=== PATIENT | male | born 1990 | race Two or more races ===

== ENCOUNTER 2016-04-28 22:49 | Emergency (ER) | payer SELFPAY ==
[~2016-04-28] VITALS: Ht 170.2 cm; Wt 77.1 kg
[~2016-04-28 22:49] MED LIST: PHEN100C4 PO
[2016-04-29] MEDS ORDERED: IV SET PRIMARY 1 EA INFUS.SET MC ONE ×2 (00:11→01:05)
[2016-04-29] MEDS ORDERED: IV NS 0.9% 1,000 ML ONE ×2 (00:11→01:05)
[2016-04-29 00:26] LABS: BASOPHILS % (AUTO) 0.5 % (0.0-2.0); DIFF TOTAL % 100 %; EOSINOPHILS # (AUTO) 0.1 /CMM (0.0-0.7); EOSINOPHILS % (AUTO) 1.4 % (0.0-6.0); HEMATOCRIT 43 % (39-51); HEMOGLOBIN 14.2 g/dL (13.5-17.5); LYMPHOCYTES # (AUTO) 1.5 /CMM (0.8-4.8); LYMPHOCYTES % (AUTO) 14.5 % (20.0-44.0); MEAN CORPUSCULAR HEMOGLOBIN 29 PG (26.0-33.0); MEAN CORPUSCULAR HGB CONC 33 g/dl (31.0-36.0); MEAN CORPUSCULAR VOLUME 88 fL (80-96); MONOCYTES # (AUTO) 0.7 /CMM (0.1-1.30); MONOCYTES % (AUTO) 6.7 % (2.0-12.0); NEUTROPHILS # (AUTO) 7.8 /CMM (1.8-8.9); NEUTROPHILS % (AUTO) 76.9 % (43.0-81.0); PLATELET COUNT (AUTO) 243 /CMM (150-450); RED BLOOD CELL COUNT(AUTO) 4.89 MIL/uL (4.5-6.0); WHITE BLOOD COUNT (AUTO) 10.1 K/uL (4.3-11.0)
[2016-04-29] MEDS ORDERED: IV NS 0.9% 1,000 ML BAG IV ONE ×2 (00:30→01:30)
[2016-04-29 00:35] LABS: CALCIUM, SERUM 8.8 mg/dL (8.5-10.1); POTASSIUM 3.4 mmol/L (3.5-5.1)
[2016-04-29 00:59] LABS: CREATINE KINASE MB 0.9 ng/mL (0-3.6)
[2016-04-29] MEDS ORDERED: POTASSIUM CHLORIDE 20 MEQ TAB.PRT.SR PO ONE ×2 (01:05→01:30)
[2016-04-29 01:49] VITALS: BP 105/66
== END 2016-04-29 01:54 | disposition home or self-care (01) ==
LOC: ER 22:49
DX: M79.652 Pain in left thigh (principal); M62.82 Rhabdomyolysis; E86.0 Dehydration; E87.6 Hypokalemia; G40.909 Epilepsy, unspecified, not intractable, without status epilepticus; Q99.9 Chromosomal abnormality, unspecified
CPT/HCPCS: 36415; 80048; 82550; 82553; 85025; 96360; 96361; 99284; J7030 ×2

== ENCOUNTER 2016-08-05 20:20 | Emergency (ER) | payer SELFPAY ==
[~2016-08-05] VITALS: Ht 172.7 cm; Wt 70.3 kg
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
--- NOTE | 2016-08-05 20:50 | NUR ---
XR AT BEDSIDE.
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
--- NOTE | 2016-08-05 21:19 | NUR ---
[employer] AT BEDSIDE.
[2016-08-05] MEDS ORDERED: TDAP [DIPH/PERTUSSIS/TET] 0.5 ML VIAL IM ONE (21:25)
[2016-08-05] MEDS ORDERED: LIDOCAINE HCL/PF 1% 30 ML SDV ONE (21:38)
[2016-08-05] MEDS: TDAP [DIPH/PERTUSSIS/TET] 0.5 ML VIAL IM ONE (21:38)
--- NOTE | 2016-08-05 22:00 | NUR ---
Dr Vail at bedside for suture on the wound.
--- NOTE | 2016-08-05 22:40 | NUR ---
Patient discharged to home in stable condition. Written and verbal after care instructions given. Patient verbalizes understanding of instruction. Patient is ambulatory with steady gait. No further complaints.
[2016-08-05 22:57] VITALS: BP 148/78
== END 2016-08-05 22:58 | disposition home or self-care (01) ==
LOC: ER 20:22
DX: S61.401A Unspecified open wound of right hand, initial encounter (principal); G40.909 Epilepsy, unspecified, not intractable, without status epilepticus; Q99.9 Chromosomal abnormality, unspecified; Z23 Encounter for immunization; W34.09XA Accidental discharge from other specified firearms, initial encounter; Y93.89 Activity, other specified; Y92.89 Other specified places as the place of occurrence of the external cause; Y99.8 Other external cause status
CPT/HCPCS: 73090-TC; 73130-TC; 90715; A4606; J3490; Z7610

== ENCOUNTER 2016-08-13 21:14 | Emergency (ER) | payer MEDICAID ==
[~2016-08-13] VITALS: Ht 177.8 cm; Wt 75.3 kg
[2016-08-13 21:19] VITALS: BP 130/77
== END 2016-08-13 21:56 | disposition home or self-care (01) ==
LOC: ER 21:15
DX: S61.411D Laceration without foreign body of right hand, subsequent encounter (principal); G40.909 Epilepsy, unspecified, not intractable, without status epilepticus
CPT/HCPCS: A4606; Z7502; Z7610

== ENCOUNTER 2016-11-13 03:02 | Emergency (ER) | payer MEDICAID ==
[~2016-11-13] VITALS: Ht 160 cm; Wt 72.6 kg
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
--- NOTE | 2016-11-13 06:16 | NUR ---
DR. ALVES AT BEDSIDE FOR EVAL.
--- NOTE | 2016-11-13 06:26 | NUR ---
IV STARTED ON LEFT FA 20G, INTACT AND PATENT. GOOD BLOOD RETURN. LABS DRAWN AND SENT TO LAB
[2016-11-13 06:35] LABS: BASOPHILS % (AUTO) 0.5 % (0.0-2.0); EOSINOPHILS % (AUTO) 0.3 % (0.0-6.0); HEMATOCRIT 46 % (39-51); HEMOGLOBIN 15.2 g/dL (13.5-17.5); LYMPHOCYTES # (AUTO) 1.5 /CMM (0.8-4.8); LYMPHOCYTES % (AUTO) 15.8 % (20.0-44.0); MEAN CORPUSCULAR HEMOGLOBIN 29 PG (26.0-33.0); MEAN CORPUSCULAR HGB CONC 33 g/dl (31.0-36.0); MEAN CORPUSCULAR VOLUME 88 fL (80-96); MONOCYTES # (AUTO) 0.4 /CMM (0.1-1.30); MONOCYTES % (AUTO) 4.4 % (2.0-12.0); NEUTROPHILS # (AUTO) 7.3 /CMM (1.8-8.9); PLATELET COUNT (AUTO) 235 /CMM (150-450); RDW COEFFICIENT OF VARIATION 13.8 (11.5-15.0); RED BLOOD CELL COUNT(AUTO) 5.24 MIL/uL (4.5-6.0); WHITE BLOOD COUNT (AUTO) 9.3 K/uL (4.3-11.0)
[2016-11-13 06:48] LABS: CREATININE 0.8 mg/dL (0.6-1.3); POTASSIUM 3.8 mmol/L (3.5-5.1)
--- NOTE | 2016-11-13 06:50 | NUR ---
PT APPEARS COMFORTABLE AT THIS TIME. MOTHER AT BEDSIDE
[2016-11-13 06:51] LABS: PHENYTOIN (DILANTIN) 4.2 ug/ml (10.0-20.0)
[2016-11-13 06:53] LABS: ALBUMIN 3.8 g/dL (3.4-5.0); BILIRUBIN,TOTAL 0.2 mg/dL (0.2-1.0)
--- NOTE | 2016-11-13 07:03 | NUR ---
REPORT GIVEN TO POOJA BURLESON FOR GERTRUDIS.
--- NOTE | 2016-11-13 08:29 | NUR ---
Patient discharged to home in stable condition. Written and verbal after care instructions given. Patient verbalizes understanding of instruction. IV removed. Catheter intact and site benign. Pressure and 4x4 applied to site. No bleeding noted. nad noted. pt aao x4, amb with steady gait. vss. no further complaints. prescriptions given. leaving with mother via private car.
[2016-11-13 08:33] VITALS: BP 127/63
== END 2016-11-13 08:34 | disposition home or self-care (01) ==
LOC: ER 03:08
DX: G40.909 Epilepsy, unspecified, not intractable, without status epilepticus (principal); R32 Unspecified urinary incontinence; Z91.14 Patient's other noncompliance with medication regimen
CPT/HCPCS: 36415; 80048-TC; 80076-TC; 80185-TC; 85025-TC; A4606; J1165; J7030; Z7610

== ENCOUNTER 2017-10-02 16:49 | Emergency (ER) | payer MEDICAID ==
[~2017-10-02] VITALS: Ht 170.2 cm; Wt 74.4 kg
--- NOTE | 2017-10-02 17:22 | NUR ---
DR ALVES AT BEDSIDE FOR EVAL.
[2017-10-02] MEDS ORDERED: ONDANSETRON HCL/PF 4 MG/2 ML VIAL ONE (17:24)
[2017-10-02] MEDS ORDERED: ONDANSETRON HCL/PF 4 MG/2 ML VIAL IVP ONE (17:30)
[2017-10-02] MEDS ORDERED: IV NS 0.9% 1,000 ML BAG IV ONE (17:30)
--- NOTE | 2017-10-02 17:30 | NUR ---
IV LINE STARTED BLOOD DRAWN AND SENT TO LAB.
[2017-10-02 17:33] LABS: BASOPHILS % (AUTO) 0.3 % (0.0-2.0); EOSINOPHILS % (AUTO) 0.3 % (0.0-6.0); HEMATOCRIT 46 % (39-51); HEMOGLOBIN 15.1 g/dL (13.5-17.5); LYMPHOCYTES # (AUTO) 1.2 /CMM (0.8-4.8); LYMPHOCYTES % (AUTO) 16.9 % (20.0-44.0); MEAN CORPUSCULAR HEMOGLOBIN 29 PG (26.0-33.0); MEAN CORPUSCULAR HGB CONC 33 g/dl (31.0-36.0); MEAN CORPUSCULAR VOLUME 88 fL (80-96); MONOCYTES # (AUTO) 0.4 /CMM (0.1-1.30); NEUTROPHILS # (AUTO) 5.5 /CMM (1.8-8.9); NEUTROPHILS % (AUTO) 76.5 % (43.0-81.0); PLATELET COUNT (AUTO) 229 /CMM (150-450); RDW COEFFICIENT OF VARIATION 12.2 (11.5-15.0); RED BLOOD CELL COUNT(AUTO) 5.27 MIL/uL (4.5-6.0); WHITE BLOOD COUNT (AUTO) 7.1 K/uL (4.3-11.0)
[2017-10-02 17:42] LABS: CALCIUM, SERUM 9.1 mg/dL (8.5-10.1); CREATININE 1.1 mg/dL (0.6-1.3); POTASSIUM 3.6 mmol/L (3.5-5.1)
[2017-10-02 17:49] LABS: BILIRUBIN,DIRECT 0.1 mg/dL (0.0-0.2); BILIRUBIN,TOTAL 0.4 mg/dL (0.2-1.0); TOTAL PROTEIN, SERUM 7.9 g/dL (6.4-8.2)
--- NOTE | 2017-10-02 18:32 | NUR ---
Patient discharged to home in stable condition. Written and verbal after care instructions given. Patient verbalizes understanding of instruction.IV removed. Catheter intact and site benign. Pressure and 4x4 applied to site. No bleeding noted.
[2017-10-02 18:39] VITALS: BP 132/76
== END 2017-10-02 18:40 | disposition home or self-care (01) ==
LOC: ER 17:00
DX: R11.2 Nausea with vomiting, unspecified (principal); K59.03 Drug induced constipation; G40.909 Epilepsy, unspecified, not intractable, without status epilepticus; F10.10 Alcohol abuse, uncomplicated; Y90.9 Presence of alcohol in blood, level not specified
CPT/HCPCS: 36415; 80048-TC; 80076-TC; 83690-TC; 85025-TC; A4606; J2405; J7030; Z7610

== ENCOUNTER 2018-01-11 12:47 | Emergency (ER) | payer MEDICAID ==
[~2018-01-11] VITALS: Ht 170.2 cm; Wt 78.0 kg
--- NOTE | 2018-01-11 13:00 | NUR ---
PT BIB SELF C/O NAUSEA AND PRESSURE IN THE HEAD X 2 WEEKS, PT IS AOX4, NOT IN RESPIRATORY DISTRESS, V/S STABLE, KEPT RESTED AND COMFORTABLE, AWAITIN ER MD FOR EVAL.
[2018-01-11] MEDS ORDERED: ONDANSETRON HCL/PF 4 MG/2 ML VIAL IVP ONE (14:00)
[2018-01-11] MEDS ORDERED: IV NS 0.9% 1,000 ML BAG IV ONE (14:00)
[2018-01-11] MEDS ORDERED: ONDANSETRON HCL/PF 4 MG/2 ML VIAL ONE (14:07)
[2018-01-11 14:29] LABS: BASOPHILS % (AUTO) 0.4 % (0.0-2.0); EOSINOPHILS % (AUTO) 0.7 % (0.0-6.0); HEMATOCRIT 45 % (39-51); HEMOGLOBIN 15.1 g/dL (13.5-17.5); LYMPHOCYTES # (AUTO) 1.5 /CMM (0.8-4.8); LYMPHOCYTES % (AUTO) 21.2 % (20.0-44.0); MEAN CORPUSCULAR HGB CONC 33 g/dl (31.0-36.0); MEAN CORPUSCULAR VOLUME 89 fL (80-96); MONOCYTES # (AUTO) 0.4 /CMM (0.1-1.30); MONOCYTES % (AUTO) 5.2 % (2.0-12.0); NEUTROPHILS % (AUTO) 72.5 % (43.0-81.0); PLATELET COUNT (AUTO) 222 /CMM (150-450); RED BLOOD CELL COUNT(AUTO) 5.11 MIL/uL (4.5-6.0); WHITE BLOOD COUNT (AUTO) 6.9 K/uL (4.3-11.0)
--- NOTE | 2018-01-11 14:40 | NUR ---
URINE SPECIMEN COLLECTED.
[2018-01-11 14:49] LABS: CALCIUM, SERUM 9.5 mg/dL (8.5-10.1); POTASSIUM 4.2 mmol/L (3.5-5.1)
[2018-01-11 14:59] LABS: BILIRUBIN,DIRECT 0.1 mg/dL (0.0-0.2); BILIRUBIN,TOTAL 0.2 mg/dL (0.2-1.0); TOTAL PROTEIN, SERUM 8.5 g/dL (6.4-8.2)
[2018-01-11 15:08] LABS: APPEARANCE,URINE Clear (CLEAR); BILIRUBIN,URINE Negative (NEGATIVE); BLOOD, URINE Negative Ery/uL (NEGATIVE); COLOR,URINE Yellow (YELLOW); KETONES,URINE Negative (NEGATIVE); LEUKOCYTE ESTERASE ,URINE Negative (NEGATIVE); NITRITE, URINE Negative (NEGATIVE); PROTEIN,URINE Negative (NEGATIVE); UGLUCOSE Negative (NEGATIVE); UROBILINOGEN,URINE 0.2 EU/dL (0.2)
--- NOTE | 2018-01-11 15:11 | NUR ---
IV removed. Catheter intact and site benign. Pressure and 4x4 applied to site. No bleeding noted. Patient discharged to home in stable condition. Written and verbal after care instructions given. Patient verbalizes understanding of instruction.
[2018-01-11 15:15] VITALS: BP 134/70
== END 2018-01-11 15:16 | disposition home or self-care (01) ==
LOC: ER 12:50
DX: R42 Dizziness and giddiness (principal); R51 Headache; R11.0 Nausea; G40.909 Epilepsy, unspecified, not intractable, without status epilepticus; Q99.9 Chromosomal abnormality, unspecified; F10.10 Alcohol abuse, uncomplicated; Y90.9 Presence of alcohol in blood, level not specified
CPT/HCPCS: 36415; 80048-TC; 80076-TC; 81000-TC; 83690-TC; 85025-TC; A4606; J2405; J7030; Z7610

== ENCOUNTER 2019-02-05 14:21 | Emergency (ER) | payer MEDICAID ==
[~2019-02-05] VITALS: Ht 170.2 cm; Wt 79.4 kg
--- NOTE | 2019-02-05 14:35 | NUR ---
BIB MOM C/O NAUSEA/VOMITING AND DIARRHEA STARTED YESTERDAY. PATIENT A/OX4, BREATHING EVEN AND UNLABORED, NO SOB NOTED, NEEDS ATTENDED, KEPT COMFORTABLE.
[2019-02-05] MEDS ORDERED: ACETAMINOPHEN W/ CODEINE#3 1 EA TABLET ONE (14:49)
[2019-02-05] MEDS ORDERED: ONDANSETRON HCL/PF 4 MG/2 ML VIAL ONE (14:49)
[2019-02-05 14:53] LABS: BASOPHILS % (AUTO) 0.6 % (0.0-2.0); EOSINOPHILS % (AUTO) 0.3 % (0.0-6.0); HEMATOCRIT 48 % (39-51); HEMOGLOBIN 16.1 g/dL (13.5-17.5); LYMPHOCYTES # (AUTO) 0.9 /CMM (0.8-4.8); LYMPHOCYTES % (AUTO) 21.6 % (20.0-44.0); MEAN CORPUSCULAR HGB CONC 33 g/dl (31.0-36.0); MEAN CORPUSCULAR VOLUME 88 fL (80-96); MONOCYTES # (AUTO) 0.3 /CMM (0.1-1.30); NEUTROPHILS # (AUTO) 2.9 /CMM (1.8-8.9); NEUTROPHILS % (AUTO) 69.5 % (43.0-81.0); PLATELET COUNT (AUTO) 138 /CMM (150-450); RED BLOOD CELL COUNT(AUTO) 5.52 MIL/uL (4.5-6.0); WHITE BLOOD COUNT (AUTO) 4.2 K/uL (4.3-11.0)
[2019-02-05] MEDS ORDERED: ONDANSETRON HCL/PF - ER 4 MG/2 ML VIAL IV ONE (15:00)
[2019-02-05] MEDS ORDERED: IV NS 0.9% 1,000 ML BAG IV ONE (15:00)
[2019-02-05] MEDS ORDERED: ACETAMINOPHEN W/ CODEINE#3 1 EA TABLET PO ONE (15:00)
[2019-02-05 15:10] LABS: ALBUMIN 3.5 g/dL (3.4-5.0); BILIRUBIN,DIRECT 0.1 mg/dL (0.0-0.2); BILIRUBIN,TOTAL 0.4 mg/dL (0.2-1.0); CALCIUM, SERUM 8.7 mg/dL (8.5-10.1); CREATININE 1.1 mg/dL (0.6-1.3); POTASSIUM 4.2 mmol/L (3.5-5.1); TOTAL PROTEIN, SERUM 7.9 g/dL (6.4-8.2)
--- NOTE | 2019-02-05 17:14 | NUR ---
Patient a/ox4, breathing even and unlabored, no sob noted. IV removed. Catheter intact and site benign. Pressure and 4x4 applied to site. No bleeding noted.Patient discharged to home in stable condition. Written and verbal after care instructions given. Patient verbalizes understanding of instruction.
[2019-02-05 17:15] VITALS: BP 107/107
== END 2019-02-05 17:15 | disposition home or self-care (01) ==
LOC: ER 14:21
DX: J06.9 Acute upper respiratory infection, unspecified (principal); R11.2 Nausea with vomiting, unspecified; G40.909 Epilepsy, unspecified, not intractable, without status epilepticus; F10.10 Alcohol abuse, uncomplicated; Y90.9 Presence of alcohol in blood, level not specified; Z79.899 Other long term (current) drug therapy; Z90.89 Acquired absence of other organs
CPT/HCPCS: 36415; 71045; 80048; 80076; 83690; 85025; 96361; 96374; 99284; J2405; J7030

== ENCOUNTER 2020-10-30 01:47 | Emergency (ER) | payer MEDICAID ==
[~2020-10-30] VITALS: Ht 172.7 cm; Wt 88.9 kg
--- NOTE | 2020-10-30 02:05 | NUR ---
BIBRA 89 FROM HOME C/O SEIZURE LASTING 30SEC WITNESSED BY FAMILY. HX OF SEIZURE DISORDER. SEIZURE PRECAUTIONS IMPLEMENTED CLAIMS SUPPORT SPECIALIST APPLIED. PT ALERT AND ORIENTED BREATHING EVEN AN UNLABORED NOT COMPLIANING OF ANY PAIN. VITAL SIGNS STABLE. MD WAS AT BEDSIDE FOR EVAL, AWAITING ORDERS.
[2020-10-30] MEDS ORDERED: LEVETIRACETAM (500MG) 500 MG/5 ML VIAL IV ONE ×2 (02:11→02:13)
[2020-10-30] MEDS ORDERED: LEVETIRACETAM (500MG) 1,000 MG in IV NS 0.9% 100 ML IV SCH (02:30)
[2020-10-30] MEDS ORDERED: IV NS 0.9% 1,000 ML IV ONE (02:30)
--- NOTE | 2020-10-30 03:26 | NUR ---
PT SLEEPING COMOFRTABLY IN BED EASILY AROUSABLE RESPIRATIONS EVEN AND UNLABORED. CALL LIGHT WITHIN REACH WILL CONTINUE TO MONITOR.
--- NOTE | 2020-10-30 04:01 | NUR ---
Patient discharged to home in stable condition. Written and verbal after care instructions given. Patient verbalizes understanding of instruction. IV line removed and was picked up by .
[2020-10-30 04:02] VITALS: BP 120/62
== END 2020-10-30 04:04 | disposition home or self-care (01) ==
LOC: ER 01:49
DX: G40.909 Epilepsy, unspecified, not intractable, without status epilepticus (principal); Z90.89 Acquired absence of other organs; Z79.899 Other long term (current) drug therapy
CPT/HCPCS: 96365; 99285; J1953 ×3; J7030 ×3

== ENCOUNTER 2023-01-14 12:49 | Emergency (ER) | payer MEDICAID ==
[~2023-01-14] VITALS: Ht 170.2 cm; Wt 81.6 kg
[~2023-01-14 12:49] MED LIST changes: +IBUP-1955 PO
[2023-01-14 12:57] VITALS: BP 129/71; TEMP 98.4; O2SAT 98
[2023-01-14] MEDS ORDERED: AMOX-430 PO (13:34)
== END 2023-01-14 13:53 | disposition home or self-care (01) ==
LOC: ER 12:51
DX: H66.92 Otitis media, unspecified, left ear (principal); G40.909 Epilepsy, unspecified, not intractable, without status epilepticus; Z79.899 Other long term (current) drug therapy; Z90.49 Acquired absence of other specified parts of digestive tract

== ENCOUNTER → 2024-03-06 | Emergency (ER) | payer MEDICAID ==
[~2024-03-06] VITALS: Ht 170.2 cm; Wt 90.7 kg
[~2024-03-06] MED LIST changes: +AMOX-430 PO; +FAMOTIDINE/PF INJ 20 MG/2 ML VIAL IV ONE; +ONDA4TAB5 PO; +ONDANSETRON HCL/PF 4 MG/2 ML VIAL ONE
[2024-03-06] MEDS: IV NS 0.9% 1,000 ML BAG IV ONE (16:18)
[2024-03-06] MEDS: ONDANSETRON HCL/PF 4 MG/2 ML VIAL IVP ONE (16:18)
[2024-03-06] MEDS: FAMOTIDINE/PF INJ 20 MG/2 ML VIAL IV ONE (16:18)
[2024-03-06 16:19] LABS: BASOPHILS % (AUTO) 0.5 % (0.0-2.0); EOSINOPHILS # (AUTO) 0.1 K/uL (0.0-0.7); EOSINOPHILS % (AUTO) 1.9 % (0.0-6.0); HEMATOCRIT 43 % (39-51); HEMOGLOBIN 14.9 g/dL (13.5-17.5); LYMPHOCYTES # (AUTO) 1.6 K/uL (0.8-4.8); LYMPHOCYTES % (AUTO) 29.3 % (20.0-44.0); MEAN CORPUSCULAR HEMOGLOBIN 30 PG (26.0-33.0); MEAN CORPUSCULAR HGB CONC 34 g/dl (31.0-36.0); MEAN CORPUSCULAR VOLUME 88 fL (80-96); MONOCYTES # (AUTO) 0.5 K/uL (0.1-1.30); MONOCYTES % (AUTO) 8.7 % (2.0-12.0); NEUTROPHILS # (AUTO) 3.3 K/uL (1.8-8.9); NEUTROPHILS % (AUTO) 59.6 % (43.0-81.0); PLATELET COUNT (AUTO) 200 K/uL (150-450); RED BLOOD CELL COUNT(AUTO) 4.93 MIL/uL (4.5-6.0); WHITE BLOOD COUNT (AUTO) 5.6 K/uL (4.3-11.0)
[2024-03-06 16:34] LABS: CALCIUM, SERUM 9.1 mg/dL (8.5-10.1); CREATININE 0.9 mg/dL (0.6-1.3); POTASSIUM 3.8 mmol/L (3.5-5.1)
[2024-03-06 16:38] LABS: ALBUMIN 3.6 g/dL (3.4-5.0); BILIRUBIN,DIRECT 0.1 mg/dL (0.0-0.2); BILIRUBIN,TOTAL 0.2 mg/dL (0.2-1.0); TOTAL PROTEIN, SERUM 7.9 g/dL (6.4-8.2)
[2024-03-06 17:20] VITALS: BP 122/80; TEMP 98.3; O2SAT 100
== END ==
LOC: ER 15:36
DX: R11.2 Nausea with vomiting, unspecified (principal); R09.81 Nasal congestion; G40.909 Epilepsy, unspecified, not intractable, without status epilepticus; Z90.49 Acquired absence of other specified parts of digestive tract
CPT/HCPCS: 99284; 96374; 96361; 96375; 85025; 80048; 83690; 80076; 36415; J3490; J2405; J7030

== ENCOUNTER 2024-05-14 10:41 | Emergency (ER) | payer MEDICAID ==
[~2024-05-14] VITALS: Ht 170.2 cm; Wt 81.6 kg
[~2024-05-14 10:41] MED LIST changes: -FAMOTIDINE/PF INJ 20 MG/2 ML VIAL IV ONE; -ONDANSETRON HCL/PF 4 MG/2 ML VIAL ONE
[2024-05-14] MEDS ORDERED: ONDANSETRON HCL/PF 4 MG/2 ML VIAL ONE (11:34)
[2024-05-14 11:41] LABS: BASOPHILS % (AUTO) 0.1 % (0.0-2.0); LYMPHOCYTES # (AUTO) 0.7 K/uL (0.8-4.8); PLATELET COUNT (AUTO) 200 K/uL (150-450)
[2024-05-14 11:49] LABS: EOSINOPHILS % (AUTO) 0.3 % (0.0-6.0); HEMATOCRIT 50 % (39-51); HEMOGLOBIN 16.9 g/dL (13.5-17.5); LYMPHOCYTES % (AUTO) 6.6 % (20.0-44.0); MEAN CORPUSCULAR HEMOGLOBIN 30 PG (26.0-33.0); MEAN CORPUSCULAR HGB CONC 34 g/dl (31.0-36.0); MEAN CORPUSCULAR VOLUME 88 fL (80-96); MONOCYTES # (AUTO) 0.7 K/uL (0.1-1.30); MONOCYTES % (AUTO) 6.3 % (2.0-12.0); NEUTROPHILS % (AUTO) 86.7 % (43.0-81.0); RED BLOOD CELL COUNT(AUTO) 5.68 MIL/uL (4.5-6.0); RED CELL DISTRIBUTION WIDTH 13.6 % (11.5-15.0); WHITE BLOOD COUNT (AUTO) 10.4 K/uL (4.3-11.0)
[2024-05-14 11:54] LABS: CALCIUM, SERUM 9.5 mg/dL (8.5-10.1); POTASSIUM 4.5 mmol/L (3.5-5.1)
[2024-05-14] MEDS: IV NS 0.9% 1,000 ML BAG IV ONE (11:55)
[2024-05-14 11:56] LABS: BILIRUBIN,DIRECT 0.1 mg/dL (0.0-0.2); BILIRUBIN,TOTAL 0.2 mg/dL (0.2-1.0); TOTAL PROTEIN, SERUM 8.4 g/dL (6.4-8.2)
[2024-05-14] MEDS: ONDANSETRON HCL/PF 4 MG/2 ML VIAL IVP ONE (11:56)
[2024-05-14] MEDS ORDERED: ONDA4TAB5 PO (12:25)
[2024-05-14 14:09] VITALS: BP 122/76; TEMP 98; O2SAT 96
== END 2024-05-14 14:09 | disposition home or self-care (01) ==
LOC: ER 10:48
DX: R11.2 Nausea with vomiting, unspecified (principal); G40.909 Epilepsy, unspecified, not intractable, without status epilepticus; Z90.49 Acquired absence of other specified parts of digestive tract; Z79.899 Other long term (current) drug therapy
CPT/HCPCS: 99285; 96374; 96361; 85025; 80048; 83690; 80076; 36415; J2405; J7030

== ENCOUNTER 2024-08-30 01:55 | Emergency (ER) | payer MEDICAID ==
[~2024-08-30] VITALS: Ht 170.2 cm; Wt 81.6 kg
[2024-08-30] MEDS ORDERED: ONDANSETRON HCL/PF 4 MG/2 ML VIAL ONE (02:37)
[2024-08-30] MEDS ORDERED: MECLIZINE HCL 25 MG TABLET ONE (02:37)
[2024-08-30] MEDS ORDERED: LORAZEPAM INJ 2 MG/ML VIAL ONE (02:39)
[2024-08-30] MEDS: MECLIZINE HCL 25 MG TABLET PO ONE (02:48)
[2024-08-30] MEDS: IV NS 0.9% 1,000 ML BAG IV ONE (02:48)
[2024-08-30] MEDS: ONDANSETRON HCL/PF - ER 4 MG/2 ML VIAL IV ONE (02:48)
[2024-08-30] MEDS: LORAZEPAM INJ 2 MG/ML VIAL IV ONE (02:48)
[2024-08-30 02:51] LABS: PLATELET COUNT (AUTO) 235 K/uL (150-450); RED BLOOD CELL COUNT(AUTO) 4.81 MIL/uL (4.5-6.0); RED CELL DISTRIBUTION WIDTH 13.6 % (11.5-15.0); WHITE BLOOD COUNT (AUTO) 6.9 K/uL (4.3-11.0)
[2024-08-30] MEDS ORDERED: MECL-159 PO (03:04)
[2024-08-30] MEDS ORDERED: ONDA4TAB5 PO (03:04)
[2024-08-30] MEDS ORDERED: LORA2TAB95 PO (03:04)
[2024-08-30 03:14] LABS: ASPARTATE AMINOTRANSFERASE 9.0 U/L (15-37); CALCIUM, SERUM 8.8 mg/dL (8.5-10.1); CREATININE 0.8 mg/dL (0.6-1.3); SODIUM SERUM 141.0 mmol/L (136-145); TOTAL PROTEIN, SERUM 7.7 g/dL (6.4-8.2); UREA NITROGEN, BLOOD 15.0 mg/dL (7-18)
[2024-08-30 03:52] VITALS: BP 138/80; TEMP 98.3; O2SAT 99
== END 2024-08-30 03:52 | disposition home or self-care (01) ==
LOC: ER 02:00
DX: H61.23 Impacted cerumen, bilateral (principal); R53.1 Weakness; R42 Dizziness and giddiness; G40.909 Epilepsy, unspecified, not intractable, without status epilepticus; F41.9 Anxiety disorder, unspecified; Z90.49 Acquired absence of other specified parts of digestive tract; Z79.899 Other long term (current) drug therapy
CPT/HCPCS: 99284; 96374; 96361; 96375; 85025; 80048; 80076; 36415; J8597; J2060; J2405 ×2; J7030

== ENCOUNTER 2025-01-10 23:40 | Emergency (ER) | payer MEDICAID ==
[~2025-01-10] VITALS: Ht 170.2 cm; Wt 95.3 kg
[~2025-01-10 23:40] MED LIST changes: +LORA2TAB95 PO; +MECL-159 PO
--- NOTE | 2025-01-11 00:09 | NUR ---
Note frantz in EDM - 01/11/25 at 0010 by CHRISTOPHER medically stable for DC per MD. no need to wait for the result prior to discharge, Patient discharged to home in stable condition. Written and verbal after care instructions given. Patient verbalizes understanding of instruction.
[2025-01-11 00:58] VITALS: BP 145/87; TEMP 98; O2SAT 95
--- NOTE | 2025-01-11 01:14 | NUR ---
Patient discharged to home in stable condition. Written and verbal after care instructions given. Patient verbalizes understanding of instruction.
== END 2025-01-11 01:15 | disposition home or self-care (01) ==
LOC: ER 01-11 00:22
DX: G40.909 Epilepsy, unspecified, not intractable, without status epilepticus (principal); F41.9 Anxiety disorder, unspecified; B34.9 Viral infection, unspecified; Z90.49 Acquired absence of other specified parts of digestive tract